=== PATIENT | male | born 1990 | race Hispanic/Latino ===

== ENCOUNTER 2018-07-29 05:05 | Emergency (ER) | payer OTHER ==
[2018-07-29] MEDS ORDERED: LIDOCAINE HCL-MPF 1% 2ML VIAL ONE (05:17)
[2018-07-29] MEDS ORDERED: CEFTRIAXONE SODIUM 1 GM ONE (05:17)
[2018-07-29] MEDS ORDERED: ACETAMINOPHEN EXTRA STRENGTH 500 MG TABLET ONE (05:17)
== END 2018-07-29 05:30 | disposition home or self-care (01) ==
LOC: EDH 05:05
DX: K52.9 Noninfective gastroenteritis and colitis, unspecified (principal)
CPT/HCPCS: 96372; 99283; J0696; J3490